=== PATIENT | male | born 1985 | race African-American/Black ===

== ENCOUNTER 2020-08-21 09:39 | Emergency (ER) | payer OTHER ==
[2020-08-21 10:07] VITALS: BP 121/76; PULSE 75; TEMP 98; BMI 20.7
== END 2020-08-21 11:17 | disposition home or self-care (01) ==
LOC: JERFT 09:39
DX: Z48.02 Encounter for removal of sutures (principal)
CPT/HCPCS: 99281-25

== ENCOUNTER 2020-08-31 16:19 | Emergency (ER) | payer OTHER ==
[2020-08-31 17:34] VITALS: BP 125/71; PULSE 69; TEMP 98; BMI 22.8
== END 2020-08-31 18:23 | disposition home or self-care (01) ==
LOC: JERFT 16:19
DX: S61.211A Laceration without foreign body of left index finger without damage to nail, initial encounter (principal); Z48.00 Encounter for change or removal of nonsurgical wound dressing
CPT/HCPCS: 99281-25